=== PATIENT | female | born 1955 | race Caucasian/White ===

== ENCOUNTER 2020-01-05 00:38 | Inpatient (IN) | payer MEDICAID ==
[~2020-01-05] VITALS: Ht 162.6 cm; Wt 98.0 kg
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
--- NOTE | 2020-01-05 01:19 | NUR ---
CALLED FOR COVID SWAB
--- NOTE | 2020-01-05 01:45 | NUR ---
COVID SWAB COLLECTED AND SENT TO LAB
[2020-01-05] MEDS ORDERED: MAG HYDROX/AL HYDROX/SIMETH 30 ML UDC PO PRN (02:00)
[2020-01-05] MEDS ORDERED: ACETAMINOPHEN 325 MG TABLET PO PRN (02:00)
[2020-01-05] MEDS ORDERED: ONDANSETRON HCL/PF 4 MG/2 ML VIAL IVP PRN (02:00)
[2020-01-05] MEDS ORDERED: MAGNESIUM HYDROXIDE 30 ML UDC PO PRN (02:00)
[2020-01-05] MEDS ORDERED: QUET25TA PO (02:25)
[2020-01-05] MEDS ORDERED: ESCI5TAB PO (02:25)
[2020-01-05] MEDS ORDERED: ESOM20CA PO (02:25)
[2020-01-05] MEDS ORDERED: QUET50TA PO (02:25)
[2020-01-05] MEDS ORDERED: FURO-145 PO (02:25)
[2020-01-05] MEDS ORDERED: GABA-532 PO (02:25)
--- NOTE | 2020-01-05 02:25 | NUR ---
REPORT CALLED TO M/S MARILU SUE.
[2020-01-05 02:30] VITALS: BP 125/73
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
[2020-01-05 03:00] VITALS: BP 125/73
--- NOTE | 2020-01-05 04:12 | NUR ---
MS/RN NOTES: INFORMED CORPORATE EVENTS DIRECTOR, VEGETABLE FARM WORKER VIRGIE THAT VTE SCORE IS >5. PLACED AN ORDER FOR DVT PUMPS. "AWAITING FOR CHEMICAL PROPHYLAXIS ORDER ONCE MORNING LABS ARE IN" PER VIRGIE.
[2020-01-05 06:26] LABS: BASOPHILS # (AUTO) 0.1 /CMM (0.0-0.2); BASOPHILS % (AUTO) 0.9 % (0.0-2.0); EOSINOPHILS % (AUTO) 3.7 % (0.0-6.0); HEMATOCRIT 39 % (33-45); HEMOGLOBIN 12.7 g/dL (11.5-14.8); LYMPHOCYTES # (AUTO) 2.7 /CMM (0.8-4.8); LYMPHOCYTES % (AUTO) 39.9 % (20.0-44.0); MEAN CORPUSCULAR HGB CONC 33 g/dl (31.0-36.0); MEAN CORPUSCULAR VOLUME 93 fL (82-100); MONOCYTES # (AUTO) 0.5 /CMM (0.1-1.30); MONOCYTES % (AUTO) 7.1 % (2.0-12.0); NEUTROPHILS # (AUTO) 3.3 /CMM (1.8-8.9); NEUTROPHILS % (AUTO) 48.4 % (43.0-81.0); PLATELET COUNT (AUTO) 197 /CMM (150-450); WHITE BLOOD COUNT (AUTO) 6.8 K/uL (4.3-11.0)
--- NOTE | 2020-01-05 06:28 | NUR ---
MS/RN NOTES: PT REMAIN STABLE ALL NIGHT. NO SIGNIFICANT CHANGES IN CONDITION. AWAITING FOR AM LABS IN ORDER TO F/U WITH MARKET DEVELOPMENT DIRECTOR DMTRY TO PLACE CHEMICAL PROPHYLAXIS FOR DVT OF >5. PT REMAINS A/OX3-4. VERBALLY RESPONSIVE AND ABLE TO MAKE NEEDS KNOWN. NO SOB, NO S/S OF DISTRESS. NO C/O PAIN AT THIS TIME. ON ROOM AIR, SATURATING WELL. BREATHING EVEN AND UNLABORED. MEDICATIONS BROUGHT BY PT PLACED IN THE MED BAG TO BE GIVEN TO PHARMACY LATER IN THE MORNING. SAFETY MEASURES KEPT IN PLACE. BED IN LOW, LOCKED POSITION WITH SR UPX2. ALL NURSING NEEDS MET AND RENDERED. KEPT WARM AND COMFORTABLE, CLEAN AND DRY ALL NIGHT. WILL ENDORSE TO DAY SHIFT FOR [facility].
[2020-01-05 06:48] LABS: ALBUMIN 3.1 g/dL (3.4-5.0); BILIRUBIN,TOTAL 0.3 mg/dL (0.2-1.0); CALCIUM, SERUM 8.6 mg/dL (8.5-10.1); PHOSPHORUS 4.7 mg/dL (2.5-4.9); POTASSIUM 3.7 mmol/L (3.5-5.1); TOTAL PROTEIN, SERUM 7.5 g/dL (6.4-8.2)
[2020-01-05 08:00] VITALS: BP 123/80
--- NOTE | 2020-01-05 08:11 | NUR ---
MS RN OPEN NOTES PATIENT IS A/O X 4. WITH NO SIGNS OF DISTRESS IN ROOM AIR. IV R AC #20G INTACT SL. NO COMPLAIN OF PAIN AT THIS MOMENT. EATING BREAKFAST. WHEEL CHAIR AT BEDSIDE. L SIDED WEAKNESS NOTED. SAFETY MEASURES ARE BEING APPLIED, BED IS IN LOW AND LOCKED POSITION, SIDE RAILS UP X 2, CALL LIGHT WITHIN REACH. COVID PCR RESULT CURRENTLY PENDING. WILL CONTINUE TO MONITOR.
[2020-01-05] MEDS: GABAPENTIN 300 MG CAPSULE PO SCH (16:29)
[2020-01-05] MEDS ORDERED: GABAPENTIN 100 MG CAPSULE PO SCH (17:00)
[2020-01-05 17:24] LABS: BILIRUBIN,URINE NEGATIVE (NEGATIVE); BLOOD, URINE NEGATIVE Ery/uL (NEGATIVE); COLOR,URINE YELLOW (YELLOW); LEUKOCYTE ESTERASE ,URINE NEGATIVE (NEGATIVE); NITRITE, URINE NEGATIVE (NEGATIVE); PROTEIN,URINE NEGATIVE (NEGATIVE); UGLUCOSE NEGATIVE (NEGATIVE); UROBILINOGEN,URINE 0.2 EU/dL (0.2)
[2020-01-05] MEDS: QUETIAPINE FUMARATE 25 MG TABLET PO SCH (18:00)
--- NOTE | 2020-01-05 19:51 | NUR ---
WELLNESS RN CLOSED NOTES PATIENT IS A/O X 4. WITH NO SIGNS OF DISTRESS IN ROOM AIR. IV R AC #20G INTACT SL. NO COMPLAIN OF PAIN AT THIS MOMENT. EATING BREAKFAST. WHEEL CHAIR AT BEDSIDE. L SIDED WEAKNESS NOTED. PATIENT KEPT CLEAN AND DRY. ALL NEEDS, CARE, TREATMENT AND MEDICATIONS ADMINISTERED ANTICIPATED PER ORDER. SAFETY MEASURES ARE APPLIED BED IS IN LOW AND LOCKED POSITION, SIDE RAILS UP X 2. CALL LIGHT WITHIN REACH, WILL ENDORSE TO THE NEXT SYSTEM CONFIGURATION SPECIALIST.
--- NOTE | 2020-01-05 19:55 | NUR ---
MS/RN OPENING NOTE Patient awake in bed A/O x4, L-sided weakness. Breathing even, clear, unlabored on room air. No JVD. CRP <3seconds. Tongue midline, no tracheal deviation. Skin warm, pink, dry, appropriate for ethnicity, intact. Abdomen large, round, soft, non-tender, non-distended. BS hypoactive all quadrants. Patient is continent, uses bedpan. Urine output clear, yellow. IV site RAC 20g saline locked, no redness or infiltration noted. Bed in low position, wheels locked, side rails up x2, call light within reach.
[2020-01-05 20:00] VITALS: BP 99/51
--- NOTE | 2020-01-06 06:07 | NUR ---
MS/RN CLOSING NOTE Patient awake in bed A/O x4, L-sided weakness. Breathing even, clear, unlabored on room air. Patient is continent, uses bedpan, 4x. Urine output clear, yellow. No bowel movement. IV site RAC 20g saline locked, no redness or infiltration noted. Bed in low position, wheels locked, side rails up x2, call light within reach.
--- NOTE | 2020-01-06 06:35 | NUR ---
MS/RN NOTE Patient refused blood draw this AM. Pt states that "we've been hurting her too much". Will continue to monitor.
--- NOTE | 2020-01-06 07:06 | NUR ---
LINE O SCRIBE OPERATOR OPENING NOTES RECEIVED PT AWAKE IN BED AT THIS TIME. AOX4. PT ABLE TO MAKE NEEDS KNOWN. NO SOB NOTED, NO S/S OF ANY ACUTE DISTRESS NOTED. NO C/O PAIN AT THIS TIME. RESPIRATIONS ARE EVEN AND UNLABORED WITH EQUAL RISE AND FALL IN CHEST. PT STABLE ON RA. IV ACCESS NOTED IN RAC G#20, INTACT, PATENT AND FLUSHING WELL. SAFETY PRECAUTION IN PLACE AND MAINTAINED AT ALL TIMES. BED IN LOWEST LOCKED POSITION, HOB ELEVATED, SIDE RAILS UP X 2, CALL LIGHT WITHIN REACH. WILL CONTINUE TO MONITOR
[2020-01-06] MEDS: FUROSEMIDE 20 MG TABLET PO SCH (08:29)
[2020-01-06] MEDS: GABAPENTIN 300 MG CAPSULE PO SCH ×2 (08:29→16:04)
[2020-01-06] MEDS: ENOXAPARIN SODIUM 40 MG/0.4 ML DISP.SYRIN SQ SCH (08:29)
[2020-01-06] MEDS: ESCITALOPRAM OXALATE (10 MG) 10 MG TABLET PO SCH (08:29)
[2020-01-06] MEDS ORDERED: Medication Not On Formulary EA (Escitalopram Oxalate (Lexapro) 1 TAB) PO SCH (09:00)
[2020-01-06] MEDS ORDERED: ESOMEPRAZOLE MAG TRIHYDRATE 20 MG CAPSULE.DR PO SCH (09:00)
[2020-01-06 09:03] LABS: BASOPHILS # (AUTO) 0.1 /CMM (0.0-0.2); BASOPHILS % (AUTO) 1.1 % (0.0-2.0); EOSINOPHILS % (AUTO) 2.1 % (0.0-6.0); HEMATOCRIT 40 % (33-45); HEMOGLOBIN 13.3 g/dL (11.5-14.8); LYMPHOCYTES # (AUTO) 2.2 /CMM (0.8-4.8); LYMPHOCYTES % (AUTO) 33.4 % (20.0-44.0); MEAN CORPUSCULAR HGB CONC 33 g/dl (31.0-36.0); MEAN CORPUSCULAR VOLUME 91 fL (82-100); MONOCYTES # (AUTO) 0.4 /CMM (0.1-1.30); MONOCYTES % (AUTO) 5.9 % (2.0-12.0); NEUTROPHILS # (AUTO) 3.7 /CMM (1.8-8.9); NEUTROPHILS % (AUTO) 57.5 % (43.0-81.0); PLATELET COUNT (AUTO) 205 /CMM (150-450); RED BLOOD CELL COUNT(AUTO) 4.41 MIL/uL (4.0-5.2); WHITE BLOOD COUNT (AUTO) 6.5 K/uL (4.3-11.0)
[2020-01-06 09:22] LABS: CALCIUM, SERUM 8.6 mg/dL (8.5-10.1); CREATININE 0.9 mg/dL (0.6-1.3); POTASSIUM 3.8 mmol/L (3.5-5.1)
[2020-01-06] MEDS ORDERED: INFLUENZA VACCINE 2020-21 0.5 ML DISP.SYRIN IM ONE (09:30)
--- NOTE | 2020-01-06 09:45 | NUR ---
INFLUENZA VACCINE 0.5ML IM ONCE ADMINISTERED IN RIGHT DELTOID AT THIS TIME PER PT REQUEST. WILL CONTINUE TO MONITOR
--- NOTE | 2020-01-06 11:15 | NUR ---
PT COVID RESULTED NEGATIVE. PT TRANSFERRED TO CLEAN UNIT ON 3WEST ROOM 310-1. DOCTOR KOURTNEY MADE AWARE. WILL CONTINUE TO MONITOR
--- NOTE | 2020-01-06 11:45 | NUR ---
MS/RN NOTE Transferred safely to [facility] along with chart and belongings. Patient in bed, VSS, afebrile, no SOB noted. Denies any pain and discomfort at this time. Bed locked to its lowest position, side rails x2 up, call light in hand. Will continue with current medical management.
[2020-01-06] MEDS: PANTOPRAZOLE 40 MG TABLET.DR PO SCH (12:17)
[2020-01-06 16:00] VITALS: BP 140/72
--- NOTE | 2020-01-06 17:04 | NUR ---
MS/RN NOTE Patient states she wants ensure chocolate, as she takes it at previous B&[employer] BID with meals. Order carried out.
[2020-01-06] MEDS: ENSURE ENLIVE CHOC 237 ML CAN PO SCH (17:15)
[2020-01-06] MEDS: QUETIAPINE FUMARATE 25 MG TABLET PO SCH (17:16)
--- NOTE | 2020-01-06 17:16 | NUR ---
MS/RN NOTE Patient refused seroquel PO medication, states "I do not take this medication at all."
--- NOTE | 2020-01-06 18:45 | NUR ---
MS/RN CLOSING NOTE Patient resting in bed, A&O x 4. All needs met and attended to. Denies any pain/discomfort at this time. Breathing even and non-labored on RA, no SOB noted. No cardiac distress noted. IV access noted on R AC #20g saline locked, patent and intact, and flushing well. Sensation from all peripheral extremities intact. Fall precautions maintained. Will continue with current medical management.
[2020-01-06 20:00] VITALS: BP 116/58
--- NOTE | 2020-01-06 20:00 | NUR ---
MS/RN OPENING NOTE Patient awake in bed A/O x4, L-sided weakness. Breathing even, clear, unlabored on room air. No JVD. CRP <3seconds. Skin warm, pink, dry, intact. Abdomen large, round, soft, non-tender, non-distended. BS active all quadrants. Patient is continent, uses bedpan. Urine output clear, yellow. IV site RAC 20g saline locked, no redness or infiltration noted. Bed in low position, wheels locked, side rails up x2, call light within reach.
[2020-01-06 22:10] VITALS: BP 116/58
--- NOTE | 2020-01-07 06:00 | NUR ---
MS/RN CLOSING NOTE Patient awake in bed A/O x4, L-sided weakness. Breathing even, clear, unlabored on room air. No acute distress or SOB. Patient is continent, uses bedpan, 2x. Urine output clear, yellow. IV site RAC 20g saline locked, no redness or infiltration noted. Bed in low position, wheels locked, side rails up x2, call light within reach.
[2020-01-07] MEDS: PANTOPRAZOLE 40 MG TABLET.DR PO SCH (06:35)
--- NOTE | 2020-01-07 07:12 | NUR ---
MS RN NOTES RECEIVED PATIENT IN BED ALERT AND AWAKE ORIENTED X4. HOB ELEVATED. NO SOB. DENIES ANY PAIN NOR DISCOMFORT AT THIS TIME. WITH LEFT SIDED WEAKNESS. RIGHT AC # 20 SL INTACT AND PATENT. BED IN LOWEST POSITION, LOCKED. BED ALARM ON. CALL LIGHT WITHIN REACH. ABLE TO VERBALIZE NEEDS.
[2020-01-07] MEDS: FUROSEMIDE 20 MG TABLET PO SCH (08:07)
[2020-01-07] MEDS: GABAPENTIN 300 MG CAPSULE PO SCH (08:07)
[2020-01-07] MEDS: ESCITALOPRAM OXALATE (10 MG) 10 MG TABLET PO SCH (08:08)
[2020-01-07] MEDS: ENOXAPARIN SODIUM 40 MG/0.4 ML DISP.SYRIN SQ SCH (08:09)
[2020-01-07] MEDS: ENSURE ENLIVE CHOC 237 ML CAN PO SCH (08:09)
[2020-01-07 08:12] VITALS: BP 118/59
--- NOTE | 2020-01-07 15:15 | NUR ---
MS RN NOTES PATIENT FOR DISCHARGED. NO S/S OF RESPIRATORY DISTRESS. DENIES ANY PAIN NOR DISCOMFORT AT THIS TIME. WITH LEFT SIDED WEAKNESS, ASSISTED WITH NEEDS. IV ACCESS CATHETER REMOVED. DISCHARGE INSTRUCTIONS/EDUCATION/TEACHINGS AND PACKET DISCUSSED AND GIVEN TO PATIENT. ALL BELONGING ACCOUNTED FOR. PATIENT PICKED UP BY AMBULANCE ACCOMPANIED BY EMT AND LEFT VIA GURNEY IN STABLE CONDITION.
== END 2020-01-07 15:15 | disposition home or self-care (01) | DRG 58 ==
LOC: ER 00:41 → MEDSG2 02:30 → MED 01-06 11:10
PROVIDERS: ADMIT Internal Medicine; ATTEND Internal Medicine
DX: I69.354 Hemiplegia and hemiparesis following cerebral infarction affecting left non-dominant side (principal); S99.921A Unspecified injury of right foot, initial encounter; Z73.6 Limitation of activities due to disability; I10 Essential (primary) hypertension; F32.9 Major depressive disorder, single episode, unspecified; G62.9 Polyneuropathy, unspecified; X58.XXXA Exposure to other specified factors, initial encounter; Y92.199 Unspecified place in other specified residential institution as the place of occurrence of the external cause; Z88.5 Allergy status to narcotic agent; Z91.048 Other nonmedicinal substance allergy status; F41.9 Anxiety disorder, unspecified; E66.01 Morbid (severe) obesity due to excess calories; Z68.37 Body mass index [BMI] 37.0-37.9, adult
CPT/HCPCS: 36415; 73620-TC; 80048-TC; 80053-TC; 80061-TC; 81000-TC; 83735-TC; 84100-TC; 85025-TC; 87081-TC; G0378; J1650; Q2036; U0003